=== PATIENT | female | born 1945 | race Caucasian/White ===

== ENCOUNTER 2021-01-24 07:31 | Outpatient (CLI) | payer MEDICARE, SELFPAY ==
[2021-01-24 07:56] LABS: Hematocrit 44.7 % (37.0-47.0); Hemoglobin 13.8 g/dL (12.0-15.0)
[2021-01-24 08:07] LABS: Anion Gap 5 mmol/L (8-16); Blood Urea Nitrogen 16 mg/dL (7-17); Carbon Dioxide 31 mmol/L (22-30); Chloride 105 mmol/L (98-107); Estimated Glomerular Filt Rate > 60; Glucose 132 mg/dL (65-105); Potassium 4.1 mmol/L (3.4-5.0); Sodium 141 mmol/L (137-145)
== END 2021-01-24 07:32 | disposition home or self-care (01) ==
PROVIDERS: Anesthesiology; PCP Family Medicine; Visit Provider Urology
DX: E11.9 Type 2 diabetes mellitus without complications (principal); D64.9 Anemia, unspecified
CPT/HCPCS: 36415; 80048; 85014; 85018

== ENCOUNTER 2021-01-28 01:16 | Day surgery (SDC) | payer MEDICARE, SELFPAY ==
[2021-01-18 09:36] VITALS: BMI 42.0
--- NOTE | 2021-01-24 19:15 | P.HP_ITS ---
H&P: HPI History of Present Illness Date/Time: 01/24/21 19:15 75 yo with OAB. InterStim functioning well. Is due for a battery change Chief Complaint: OAB Review of Systems Review of Systems: All systems reviewed & are unremarkable except as noted in HPI and below [facility] Social History Social History Smoking packs per day: 1.5 Smoking cigarettes per day: 30.0 Years smoked: 10 Smoking pack-years: 15.00 Smoking status: Former smoker Tobacco type: cigarettes Additional smoking assessment comments: STATES QUIT 1970 Alcohol intake: current Drinks per week: 1 Substance use: never Substance use type: does not use Spiritual care concerns: Yes (PT REQUEST NO BLOOD PRODUCTS) Meds Home Medications and Allergies Home Medications Medication Instructions Recorded Confirmed Type apixaban [Eliquis] 5 mg BID 01/18/21 01/18/21 History aripiprazole [Abilify] 10 mg QAM 01/18/21 01/18/21 History atorvastatin 10 mg QAM 01/18/21 01/18/21 History duloxetine 60 mg PO QAM 01/18/21 01/18/21 History duloxetine [Cymbalta] 60 mg PO QAM 01/18/21 01/18/21 History ferrous sulfate [Iron (ferrous 325 mg PO QAM 01/18/21 01/18/21 History sulfate)] lisinopril 2.5 mg QAM 01/18/21 01/18/21 History metformin 500 mg TID 01/18/21 01/18/21 History oxybutynin chloride 15 mg PO HS 01/18/21 01/18/21 History temazepam [Restoril] 30 mg HS 01/18/21 01/18/21 History trazodone 50 mg HS 01/18/21 01/18/21 History vortioxetine [Trintellix] 20 mg QAM 01/18/21 01/18/21 History Allergies Allergy/AdvReac Type Severity Reaction Status Date / Time No Known Allergies Allergy Unknown Verified 01/18/21 09:26 Exam Const: General: cooperative and healthy appearing HENMT: Head: normal to inspection Eyes: General: appearance normal, both eyes and all related structures Resp: Effort & Inspection: normal respiratory effort and able to speak in complete sentences Skin: General skin exam: normal color Assessment and Plan Assessment and plan (1) Overactive bladder: Code(s): N32.81 - Overactive bladder Status: Acute Assessment and Plan: change InterStmi battery
--- NOTE | 2021-01-28 07:21 | WPDHPUPDATE1 ---
History and Physical Update Update Date/Time: 01/28/21 07:21 History and Physical has been reviewed, including an updated exam of the patient. There are NO changes in the patient's condition. Risks, benefits, and alternatives have been discussed and questions answered. Patient agrees to proceed with procedure.
[2021-01-28 10:14] VITALS: BP 127/63; PULSE 61; RESP 20; TEMP 36.7; O2SAT 98
[2021-01-28] MEDS: LACTATED RINGERS 1,000 ML 30 ML IV CONT (10:35)
--- NOTE | 2021-01-28 10:40 | P.PNAN_ITS ---
Anes - Initial Pre Proc Eval Procedure: Operation Date: 01/28/21 10:45 Proposed Procedures p Neurostimulator Battery Change - Tunde Lantigua MD Date/Time: 01/28/21 10:40 Surgeon: Tunde Lantigua MD Pre Op Diagnosis: overactive bladder Patient Data Age: 75 Gender: F Height: 1.56 m Weight: 102.72 kg Allergies Allergy/AdvReac Type Severity Reaction Status Date / Time No Known Allergies Allergy Unknown Verified 01/28/21 09:50 Home Medications Medication Instructions Recorded Confirmed Type apixaban [Eliquis] 5 mg BID 01/18/21 01/28/21 History aripiprazole [Abilify] 10 mg QAM 01/18/21 01/28/21 History atorvastatin 10 mg QAM 01/18/21 01/28/21 History duloxetine 60 mg PO QAM 01/18/21 01/28/21 History duloxetine [Cymbalta] 60 mg PO QAM 01/18/21 01/28/21 History ferrous sulfate [Iron (ferrous 325 mg PO QAM 01/18/21 01/28/21 History sulfate)] lisinopril 2.5 mg QAM 01/18/21 01/28/21 History metformin 500 mg TID 01/18/21 01/28/21 History oxybutynin chloride 15 mg PO HS 01/18/21 01/28/21 History temazepam [Restoril] 30 mg HS 01/18/21 01/28/21 History trazodone 50 mg HS 01/18/21 01/28/21 History vortioxetine [Trintellix] 20 mg QAM 01/18/21 01/28/21 History Patient hx anesthesia problems: none Family hx anesthesia problems: none REPLACED BY [facility] Past Medical History Medical History (Updated 01/28/21 @ 10:47 by Dalton Grant MD) Diabetes Obesity NIECY (obstructive sleep apnea) Pacemaker Paroxysmal A-fib Surgical History Surgical History (Updated 01/28/21 @ 10:47 by Dalton Grant MD) H/O hernia repair History of gastric bypass Social History Social History Smoking packs per day: 1.5 Smoking cigarettes per day: 30.0 Years smoked: 10 Smoking pack-years: 15.00 Smoking status: Former smoker Tobacco type: cigarettes Additional smoking assessment comments: STATES QUIT 1971 Alcohol intake: current Drinks per week: 1 Substance use: never Substance use type: does not use Living arrangements: with family Spiritual care concerns: Yes (PT REQUEST NO BLOOD PRODUCTS) Anes - Eval Final PreProcedure Day of Procedure 01/28/21 10:40 Patient weight: morbidly obese Heart: regular rate and rhythm Lungs: clear to auscultation Airway: Mallampati scale class II Neurological: alert and oriented Last oral intake: >/= 8 hours ASA classification: IV Emergent: no Anesthetic plan: proceed Anesthesia type and monitoring: general GIVS and standard monitoring Informed Consent: The patient's anesthetic plan and its attendant risks and benefits were discussed with the patient/family/POA. Questions were solicited and answers provided to the satisfaction of the patient/family/POA.
[2021-01-28 10:44] LABS: Glucose Point of Care 116 mg/dl (65-105)
[2021-01-28] MEDS: ceFAZolin 2 GM/D5W 50 ML 2 GM/50 ML BAG IVPB (10:55)
[2021-01-28] MEDS: BUPIVACAINE/EPINEPHRINE 0.25% 10 ML VIAL 20 ML INFILTRATE (11:19)
[2021-01-28 11:28] VITALS: BP 130/67; PULSE 64; RESP 16; O2SAT 98
--- NOTE | 2021-01-28 11:36 | W.PM.PROC2 ---
Procedure Note - Detailed Date of Procedure 01/28/21 Pre-op Diagnosis overactive bladder Post-op Diagnosis same Procedure Performed exchange of Neurostimulator battery 16605 complex neurostimulator programming and impedance check 10305 Surgeon Tunde Lantigua MD Anesthesia MAC and local Indications the patient is here for exchange of the neurostimulator battery Description of Procedure the patient was correctly identified. Informed consent obtained. There brought to the operating room. there given appropriate antibiotics. All pressure points were padded the prone position. A time-out performed. I anesthetized the skin over the pulse generator. I incised the skin. I located the pulse generator. I implanted it. I sure there is no infection. I ensured hemostasis. The new neurostimulator was programmed. Appropriate connections were made. He was placed in the pocket. Impedances were checked and found to be normal. I irrigated out the wound. I closed the subcu a 2 Vicryl. I closed the skin with 4 0 Vicryl. Glue was applied. There awakened and transferred to PACU in stable condition. Implants Neurostimulator battery Drains No Packing No Pathology none sent Complications No immediate complications Condition stable
[2021-01-28 11:55] VITALS: BP 147/53; PULSE 66; RESP 16; O2SAT 100
[2021-01-28 12:25] VITALS: BP 143/53; PULSE 68; RESP 16
[2021-01-28 22:22] LABS: Glucose Point of Care 92 mg/dl (65-105)
== END 2021-01-28 12:40 | disposition home or self-care (01) ==
PROVIDERS: PCP Family Medicine; Visit Provider Urology
PROC: (CPT 64590; principal; 2021-01-28 10:45)
DX: Z45.42 Encounter for adjustment and management of neurostimulator (principal); N32.81 Overactive bladder; Z87.891 Personal history of nicotine dependence; Z79.01 Long term (current) use of anticoagulants; Z79.84 Long term (current) use of oral hypoglycemic drugs
CPT/HCPCS: 64590; 82948; C1767; C1787; J0690; J2704; J3010; J7120